=== PATIENT | female | born 1975 | race Caucasian/White ===

== ENCOUNTER → 2024-12-12 12:16 | Outpatient (REF) | payer OTHER, SELFPAY | LOC: MRI 12:16 | PROVIDERS: ATTENDING PHYSICIAN Obstetrics & Gynecology; FAMILY PHYSICIAN Family Medicine | DX: Z91.89 Other specified personal risk factors, not elsewhere classified (principal); R92.323 Mammographic fibroglandular density, bilateral breasts | CPT/HCPCS: 77049; A9585 ==